=== PATIENT | male | born 1975 | race Hispanic/Latino ===

== ENCOUNTER 2017-08-07 05:25 | Emergency (ER) | payer OTHER ==
[2017-08-07 05:42] VITALS: BP 148/92; PULSE 88; RESP 16; TEMP 98.5; O2SAT 97
[2017-08-07] MEDS ORDERED: Lidocaine 2% Inj (20ml) INFIL ONE (05:43)
[2017-08-07] MEDS ORDERED: Bacitracin 500 Units/gm Oint Foilpak UD TOP ONE (05:43)
--- NOTE | 2017-08-07 05:45 | C.PDOC ---
History Of Present Illness 42 yo male c/o laceration to the left 3rd finger just prior to arrival. Pt works at the [employer], was using a knife and cut his finger. Right hand dominant. No change in sensation. Time Seen by Provider: 08/07/17 05:40 Chief Complaint (Nursing): Abnormal Skin Integrity History Per: Patient History/Exam Limitations: no limitations Onset/Duration Of Symptoms: Mins Current Symptoms Are (Timing): Still Present Past Medical History Vital Signs: Last Vital Signs Temp 98.5 F 08/07/17 05:39 Pulse 88 08/07/17 05:39 Resp 16 08/07/17 05:39 BP 148/92 H 08/07/17 05:39 Pulse Ox 97 08/07/17 06:16 Family History: States: Unknown Family Hx - Social History Hx Alcohol Use: Yes Hx Substance Use: No - Immunization History Hx Tetanus Toxoid Vaccination: Yes (2013) Hx Influenza Vaccination: No Hx Pneumococcal Vaccination: No Review Of Systems Constitutional: Negative for: Fever Neurological: Negative for: Weakness, Numbness Physical Exam - Physical Exam Appears: Well, Non-toxic, No Acute Distress Skin: Warm, Dry, Other ((+) 3 cm laceration to the distal aspect of the left 3rd finger ) Head: Atraumatic, Normacephalic Eye(s): bilateral: Normal Inspection, EOMI Nose: Normal Oral Mucosa: Moist Neck: Normal Chest: Symmetrical Respiratory: No Accessory Muscle Use Extremity: Normal ROM, Capillary Refill (< 2 sec), No Swelling Pulses: Left Radial: Normal, Right Radial: Normal Neurological/Psych: Oriented x3, Normal Motor, Normal Sensation ED Course And Treatment O2 Sat by Pulse Oximetry: 97 Progress Note: Pt refused pain medication. Discussed wound care and instructed to follow up with PMD in days for re-evaluation. Laceration - Laceration Repair left 3rd finger Wound Length (In cm): 2 Description Of Wound: Irregular (C shaped) Wound Cleansed With: Betadine, Sterile Saline Anesthesia: Lidocaine 1% Wound Examination: Irrigated With Saline, No FB With Wound Exploration, No Tendon Injury With Wound Exploration Wound Closure: Suture (2) Suture Technique And Material Used: Nylon (5-0) Wound Complexity: Simple Disposition - Disposition Disposition: HOME/ ROUTINE Disposition Time: 05:47 Condition: STABLE Additional Instructions: Wound check in 2 days. Suture removal in 7 days. Watch for signs of infection including redness, swelling and discharge. Return to ER if these should arise. Instructions: Finger Laceration (ED) Forms: [facility] (Polish), Work Excuse - Clinical Impression Clinical Impression: Finger laceration
[2017-08-07] MEDS ORDERED: Bacitracin 500 Units/gm Oint Foilpak UD ONE (06:05)
== END 2017-08-07 06:24 | disposition home or self-care (01) ==
LOC: C.ER 05:25
DX: S61.213A Laceration without foreign body of left middle finger without damage to nail, initial encounter (principal); W26.0XXA Contact with knife, initial encounter; Y92.89 Other specified places as the place of occurrence of the external cause; Y99.0 Civilian activity done for income or pay

== ENCOUNTER 2017-08-16 08:16 | Emergency (ER) | payer OTHER ==
--- NOTE | 2017-08-16 09:20 | C.PDOC ---
History Of Present Illness 42-year-old male, presents to the emergency department for suture removal. Patient was seen in ED for lacerating repair on 08/07 to the left third finger. Denies any fevers, change in sensation, new injuries. Time Seen by Provider: 08/16/17 08:25 Chief Complaint (Nursing): Abnormal Skin Integrity History Per: Patient History/Exam Limitations: no limitations Past Medical History Reviewed: Historical Data, Nursing Documentation, Vital Signs Vital Signs: Last Vital Signs Temp 98.6 F 08/16/17 09:28 Pulse 72 08/16/17 09:28 Resp 16 08/16/17 09:28 BP 122/74 08/16/17 09:28 Pulse Ox 95 08/16/17 10:07 Family History: States: No Known Family Hx - Social History Hx Alcohol Use: Yes Hx Substance Use: No - Immunization History Hx Tetanus Toxoid Vaccination: Yes (2013) Hx Influenza Vaccination: No Hx Pneumococcal Vaccination: Yes Review Of Systems Constitutional: Negative for: Fever, Chills Physical Exam - Physical Exam Appears: Non-toxic, No Acute Distress Skin: Warm, Dry, No Rash Head: Atraumatic, Normacephalic Eye(s): bilateral: Normal Inspection, PERRL Nose: Normal Oral Mucosa: Moist Lips: Normal Appearing Neck: Normal ROM Chest: Symmetrical Respiratory: No Accessory Muscle Use Extremity: Normal ROM, Other (two sutures to the left third digit, upper extremity) Neurological/Psych: Oriented x3, Normal Speech ED Course And Treatment O2 Sat by Pulse Oximetry: 95 Medical Decision Making Medical Decision Making: Suture Removal: two sutures from left hand third digit removed without difficulty. Disposition - Disposition Disposition: HOME/ ROUTINE Disposition Time: 09:19 Condition: GOOD Additional Instructions: Return if worsened Instructions: Stitches Removal (ED) Forms: [facility] (Lithuanian) - Clinical Impression Clinical Impression: Visit for suture removal - Scribe Statement The provider has reviewed the documentation as recorded by the Scribe (Melissa Novoa) All medical record entries made by the Scribe were at my direction and personally dictated by me. I have reviewed the chart and agree that the record accurately reflects my personal performance of the history, physical exam, medical decision making, and the department course for this patient. I have also personally directed, reviewed, and agree with the discharge instructions and disposition.
[2017-08-16 09:29] VITALS: BP 122/74; PULSE 72; RESP 16; TEMP 98.6
[2017-08-16 10:03] VITALS: O2SAT 95
== END 2017-08-16 09:38 | disposition home or self-care (01) ==
LOC: C.ER 08:16
DX: Z48.02 Encounter for removal of sutures (principal)